=== PATIENT | male | born 1960 | race African-American/Black ===

== ENCOUNTER 2021-09-09 08:50 | Emergency (ER) | payer SELFPAY ==
[~2021-09-09] VITALS: Ht 175.3 cm; Wt 81.0 kg
[2021-09-09] MEDS ORDERED: CEPH500C2 MT (10:04)
[2021-09-09 10:19] VITALS: BP 127/86
== END 2021-09-09 10:20 | disposition home or self-care (01) ==
LOC: ER 08:58
DX: L98.9 Disorder of the skin and subcutaneous tissue, unspecified (principal); L03.211 Cellulitis of face; R03.0 Elevated blood-pressure reading, without diagnosis of hypertension
CPT/HCPCS: 99283

== ENCOUNTER 2024-02-18 09:38 | Emergency (ER) | payer SELFPAY ==
[~2024-02-18] VITALS: Ht 165.1 cm; Wt 68.0 kg
[~2024-02-18 09:38] MED LIST: CEPH500C2 MT
[2024-02-18 09:48] VITALS: O2SAT 100
[2024-02-18] MEDS ORDERED: IBUPROFEN 600MG TABLET PO ONE (10:30)
[2024-02-18] MEDS ORDERED: LISI-186 MT (12:49)
[2024-02-18] MEDS ORDERED: IBUP-2029 MT (12:49)
[2024-02-18] MEDS ORDERED: P50 MT (12:49)
[2024-02-18] MEDS: KETOROLAC 30MG/ML VIAL IM ONE (13:26)
[2024-02-18 13:28] VITALS: BP 183/94; PULSE 59; RESP 16; TEMP 36.83628; O2SAT 99
== END 2024-02-18 13:30 | disposition home or self-care (01) ==
LOC: ER 09:38
DX: M54.17 Radiculopathy, lumbosacral region (principal); I10 Essential (primary) hypertension; F12.90 Cannabis use, unspecified, uncomplicated; Z79.899 Other long term (current) drug therapy
CPT/HCPCS: 72100; 96372; 99283; J1885; Z7610